=== PATIENT | female | born 1950 | race Hispanic/Latino ===

== ENCOUNTER 2021-02-27 13:10 | Inpatient (IN) | payer OTHER, MEDICARE ==
[~2021-02-27] VITALS: Ht 154.9 cm; Wt 87.1 kg
[2021-02-27] VITALS (7 sets, daily range): BP systolic 129–141; BP diastolic 69–99
[2021-02-27 14:12] LABS: BASOPHILS % (AUTO) 0.2 % (0.0-5.0); HEMATOCRIT 33.2 % (36-48); LYMPHOCYTES % (AUTO) 7.7 % (21.0-51.0); MONOCYTES % (AUTO) 5.8 % (3.0-13.0); NEUTROPHILS % (AUTO) 85.7 % (40.0-77.0); PLATELET COUNT (AUTO) 276 K/uL (130-400); RED BLOOD CELL COUNT(AUTO) 3.32 MIL/uL (4.00-5.50); RED CELL DISTRIBUTION WIDTH 15.8 % (11.0-15.5); WHITE BLOOD COUNT (AUTO) 14.4 K/uL (4.8-10.8)
[2021-02-27 14:15] LABS: CREATININE 1.8 mg/dL (0.5-1.5); POTASSIUM 4.3 mmol/L (3.5-5.1)
[2021-02-27 14:16] LABS: ABG BASE EXCESS -0.3 mmol/L (-2.0-3.0); ABG HCO3 22.7 mmol/L (21.0-28.0); ABG OXYGEN SATURATION 87.1 % (95.0-99.0); ABG PCO2 31 mmHg (32-45)
[2021-02-27 14:25] LABS: ALBUMIN 2.4 g/dL (3.5-5.0); BILIRUBIN,TOTAL 3.5 mg/dL (0.2-1.0); TOTAL PROTEIN, SERUM 7.5 g/dL (6.0-8.3)
[2021-02-27] MEDS ORDERED: BIVALIRUDIN 250 MG/VIAL IV ONE (14:45)
[2021-02-27] MEDS ORDERED: HEPARIN 10,000 UNIT/10ML (1,000 UNIT/ML) VIAL ONE (14:45)
[2021-02-27] MEDS ORDERED: IOHEXOL 350 MG/ML 100ML INFUS..BTL IV ONE (14:46)
[2021-02-27] MEDS ORDERED: IOHEXOL-350 50ML VIAL IV ONE (14:46)
[2021-02-27] MEDS ORDERED: NITROGLYCERIN 50MG VIAL IV ONE (14:46)
[2021-02-27] MEDS ORDERED: LIDOCAINE HCL 400MG/20ML VIAL ONE (14:46)
[2021-02-27] MEDS ORDERED: ASPIRIN 325MG EC TAB PO ONE (15:09)
[2021-02-27] MEDS ORDERED: MORPHINE 4 MG SYG ONE (15:15)
[2021-02-27] MEDS ORDERED: LABETALOL 20MG VIAL IV ONE (15:20)
[2021-02-27] MEDS ORDERED: MORPHINE 2 MG SYG ONE (15:26)
[2021-02-27] MEDS ORDERED: HYDRALAZINE 20MG/ML VIAL ONE (15:32)
[2021-02-27 18:11] LABS: CRP QUANTITATIVE 375.5 mg/L (0.00-9.0)
[2021-02-27] MEDS ORDERED: BARICITINIB MISC SCH (18:30)
[2021-02-27] MEDS ORDERED: [UNRECOGNIZED DRUG - OTHER] MISC SCH (18:30)
[2021-02-27] MEDS ORDERED: CLON0.1T PO (19:00)
[2021-02-27] MEDS: 0.9%NACL 1000ML 1,000 ML IV SCH (19:00)
[2021-02-27] MEDS ORDERED: FURO40TA5 PO (19:00)
[2021-02-27] MEDS ORDERED: METO-391 PO (19:00)
[2021-02-27] MEDS ORDERED: ATOR10 PO (19:00)
[2021-02-27] MEDS ORDERED: HYDR-4154 PO (19:00)
[2021-02-27] MEDS ORDERED: APIX5TAB PO (19:00)
[2021-02-27] MEDS ORDERED: INSU100I13 SQ ×2 (19:00)
[2021-02-27] MEDS ORDERED: ALLO100T PO (19:00)
[2021-02-27] MEDS ORDERED: PRED20TA3 PO (19:00)
[2021-02-27] MEDS: CEFEPIME HCL 2 GM VIAL IVP SCH (19:04)
[2021-02-27] MEDS: IPRATROPIUM 0.5 MG/2.5 ML INH IH SCH ×2 (20:07→23:13)
[2021-02-27] MEDS: DOXYCYCLINE HYCLATE 100 MG TABLET PO SCH (20:10)
[2021-02-27] MEDS: ATORVASTATIN 20 MG TABLET PO SCH (20:10)
[2021-02-27] MEDS: HYDRALAZINE 25MG TABLET PO SCH (20:10)
[2021-02-27] MEDS ORDERED: INSULIN HUMULIN R 100 UNIT/ML 3ML SQ SCH (22:00)
[2021-02-27] MEDS: SOLU-MEDROL 40MG VIAL IVP SCH (23:01)
[2021-02-27] MEDS ORDERED: INSULIN GLARGINE 100 UNITS/ML 10 ML VIAL SQ ONE (23:45)
[2021-02-28] VITALS: BP 133/67
[2021-02-28] MEDS: 0.9%NACL 1000ML 1,000 ML IV SCH (02:16)
[2021-02-28 04:00] VITALS: BP 149/75
[2021-02-28] MEDS ORDERED: LINEZOLID 600 MG/ISO-OSM 300 ML IV ONE (05:30)
[2021-02-28] MEDS: IPRATROPIUM 0.5 MG/2.5 ML INH IH SCH ×2 (05:47→07:42)
[2021-02-28 06:21] LABS: BASOPHILS % (AUTO) 0.2 % (0.0-5.0); EOSINOPHILS % (AUTO) 0.7 % (0.0-8.0); HEMATOCRIT 31.7 % (36-48); MEAN CORPUSCULAR HGB CONC 30.9 g/dL (32.0-36.0); MEAN CORPUSCULAR VOLUME 100.3 fL (79-99); MONOCYTES % (AUTO) 2.2 % (3.0-13.0); NEUTROPHILS % (AUTO) 92.9 % (40.0-77.0); PLATELET COUNT (AUTO) 272 K/uL (130-400); RED BLOOD CELL COUNT(AUTO) 3.16 MIL/uL (4.00-5.50); RED CELL DISTRIBUTION WIDTH 15.9 % (11.0-15.5); WHITE BLOOD COUNT (AUTO) 18.9 K/uL (4.8-10.8)
[2021-02-28] MEDS: INSULIN HUMULIN R 100 UNIT/ML 3ML SQ SCH ×4 (06:24→20:57)
[2021-02-28 06:41] LABS: ALBUMIN 2.1 g/dL (3.5-5.0); BILIRUBIN,TOTAL 2.7 mg/dL (0.2-1.0); CREATININE 1.3 mg/dL (0.5-1.5); MAGNESIUM 1.9 mg/dL (1.80-2.40); POTASSIUM 4.4 mmol/L (3.5-5.1); TOTAL PROTEIN, SERUM 6.7 g/dL (6.0-8.3)
[2021-02-28 06:48] LABS: CRP QUANTITATIVE 319.7 mg/L (0.00-9.0)
[2021-02-28 06:54] LABS: HEMOGLOBIN A1C 8.5 % (4.0-6.0)
[2021-02-28 07:32] VITALS: BP 147/85
[2021-02-28] MEDS ORDERED: PANTOPRAZOLE 40 MG TAB DR PO SCH (09:00)
[2021-02-28] MEDS ORDERED: FUROSEMIDE 40 MG TABLET PO SCH (09:00)
[2021-02-28] MEDS: METOPROLOL SUCCINATE 50 MG TAB.SR.24H PO SCH (09:38)
[2021-02-28] MEDS: APIXABAN 5 MG TABLET PO SCH ×2 (09:39→20:30)
[2021-02-28] MEDS: SOLU-MEDROL 40MG VIAL IVP SCH ×2 (09:39→20:30)
[2021-02-28] MEDS: ALLOPURINOL 100 MG TABLET PO SCH (09:39)
[2021-02-28] MEDS: HYDRALAZINE 25MG TABLET PO SCH ×3 (09:39→20:30)
[2021-02-28] MEDS: PANTOPRAZOLE 40 MG TAB DR PO SCH (09:39)
[2021-02-28] MEDS: DOXYCYCLINE HYCLATE 100 MG TABLET PO SCH ×2 (09:40→20:30)
[2021-02-28] MEDS: BARICITINIB (EUA) 2 MG TABLET PO SCH (09:40)
[2021-02-28] MEDS: FUROSEMIDE 40 MG TABLET PO SCH (09:40)
[2021-02-28 11:31] VITALS: BP 123/61
[2021-02-28] MEDS ORDERED: PHARMACY COMMUNICATION**REMDESIVIR MISC SCH (12:30)
[2021-02-28] MEDS: BUSPIRONE HCL 5 MG TABLET PO SCH ×2 (14:15→20:30)
[2021-02-28 15:14] VITALS: BP 111/63
[2021-02-28] MEDS: CEFEPIME HCL 2 GM VIAL IVP SCH (17:18)
[2021-02-28] MEDS: LINEZOLID 600 MG/ISO-OSM 300 ML IV SCH (17:18)
[2021-02-28 19:52] VITALS: BP 122/67
[2021-02-28] MEDS: ATORVASTATIN 20 MG TABLET PO SCH (20:30)
[2021-02-28] MEDS: INSULIN GLARGINE 100 UNITS/ML 10 ML VIAL SQ SCH (20:58)
[2021-02-28] MEDS ORDERED: SOLU-MEDROL 40MG VIAL IVP SCH (22:30)
[2021-03-01] VITALS (7 sets, daily range): BP systolic 109–127; BP diastolic 53–73
[2021-03-01] MEDS: LINEZOLID 600 MG/ISO-OSM 300 ML IV SCH ×2 (05:07→17:34)
[2021-03-01] MEDS: BUSPIRONE HCL 5 MG TABLET PO SCH ×3 (05:07→20:51)
[2021-03-01 05:18] LABS: BASOPHILS % (AUTO) 0.1 % (0.0-5.0); HEMATOCRIT 29.8 % (36-48); LYMPHOCYTES % (AUTO) 2.5 % (21.0-51.0); MEAN CORPUSCULAR HGB CONC 31.9 g/dL (32.0-36.0); MEAN CORPUSCULAR VOLUME 100.3 fL (79-99); NEUTROPHILS % (AUTO) 94.1 % (40.0-77.0); NUCLEATED RED BLOOD CELLS 0.4 % (0.0-0.19); PLATELET COUNT (AUTO) 270 K/uL (130-400); RED BLOOD CELL COUNT(AUTO) 2.97 MIL/uL (4.00-5.50); RED CELL DISTRIBUTION WIDTH 15.9 % (11.0-15.5); WHITE BLOOD COUNT (AUTO) 18.2 K/uL (4.8-10.8)
[2021-03-01 05:37] LABS: BILIRUBIN,TOTAL 1.4 mg/dL (0.2-1.0); CREATININE 1.2 mg/dL (0.5-1.5); MAGNESIUM 2.1 mg/dL (1.80-2.40); TOTAL PROTEIN, SERUM 6.5 g/dL (6.0-8.3)
[2021-03-01] MEDS: IPRATROPIUM 0.5 MG/2.5 ML INH IH SCH ×3 (06:00→17:19)
[2021-03-01] MEDS: INSULIN HUMULIN R 100 UNIT/ML 3ML SQ SCH ×4 (06:29→21:08)
[2021-03-01] MEDS ORDERED: REMDESIVIR (EUA) 520 200 MG in 0.9% NACL 250ML 250 ML IV SCH (07:00)
[2021-03-01] MEDS ORDERED: COMPOUND IV REFRIGERATED 1 EACH IVSOLN MISC PRN (07:00)
[2021-03-01] MEDS: BARICITINIB (EUA) 2 MG TABLET PO SCH (08:54)
[2021-03-01] MEDS: PANTOPRAZOLE 40 MG TAB DR PO SCH (08:55)
[2021-03-01] MEDS: FUROSEMIDE 40 MG TABLET PO SCH (08:55)
[2021-03-01] MEDS: DOXYCYCLINE HYCLATE 100 MG TABLET PO SCH ×2 (08:55→20:52)
[2021-03-01] MEDS: HYDRALAZINE 25MG TABLET PO SCH ×3 (08:55→20:52)
[2021-03-01] MEDS: SOLU-MEDROL 40MG VIAL IVP SCH ×2 (08:55→20:52)
[2021-03-01] MEDS: METOPROLOL SUCCINATE 50 MG TAB.SR.24H PO SCH (08:56)
[2021-03-01] MEDS: APIXABAN 5 MG TABLET PO SCH (08:56)
[2021-03-01] MEDS: ALLOPURINOL 100 MG TABLET PO SCH (08:56)
[2021-03-01] MEDS: CEFEPIME HCL 2 GM VIAL IVP SCH (17:34)
[2021-03-01] MEDS: ATORVASTATIN 20 MG TABLET PO SCH (20:52)
[2021-03-01] MEDS: ENOXAPARIN SODIUM 80 MG/0.8 ML SQ SCH (20:53)
[2021-03-01] MEDS: INSULIN GLARGINE 100 UNITS/ML 10 ML VIAL SQ SCH (21:09)
[2021-03-02 03:41] LABS: APPEARANCE,URINE Cloudy (CLEAR); BILIRUBIN,URINE Negative (NEGATIVE); COLOR,URINE Yellow (YELLOW); GLUCOSE, URINE (UA) Negative (NEGATIVE); KETONES,URINE Negative (NEGATIVE); LEUKOCYTE ESTERASE ,URINE Large (NEGATIVE); NITRATE,URINE Negative (NEGATIVE); OCCULT BLOOD,URINE Negative (NEGATIVE); PH,URINE 5.5 (5.0-8.0); PROTEIN,URINE POS 2+ mg/dL (NEGATIVE)
[2021-03-02 03:51] LABS: BACTERIA,URINE Few /HPF (None Seen); HYALINE CASTS, URINE 0-1 /LPF (0-1 /LPF); RBC,URINE 0-1 /HPF (0-1); SQUAMOUS EPITHELIAL CELL,UR 0-2 /HPF (0-2); WBC,URINE 26-50 /HPF (0-1)
[2021-03-02 04:00] VITALS: BP 124/74
[2021-03-02] MEDS: LINEZOLID 600 MG/ISO-OSM 300 ML IV SCH ×2 (05:04→18:10)
[2021-03-02] MEDS: BUSPIRONE HCL 5 MG TABLET PO SCH ×2 (05:04→12:42)
[2021-03-02 05:08] LABS: BASOPHILS % (AUTO) 0.1 % (0.0-5.0); HEMATOCRIT 30.1 % (36-48); LYMPHOCYTES % (AUTO) 2.6 % (21.0-51.0); MEAN CORPUSCULAR HEMOGLOBIN 31.4 pg (27.0-33.0); MEAN CORPUSCULAR HGB CONC 31.9 g/dL (32.0-36.0); MEAN CORPUSCULAR VOLUME 98.4 fL (79-99); NEUTROPHILS % (AUTO) 94.6 % (40.0-77.0); NUCLEATED RED BLOOD CELLS 0.5 % (0.0-0.19); PLATELET COUNT (AUTO) 302 K/uL (130-400); RED BLOOD CELL COUNT(AUTO) 3.06 MIL/uL (4.00-5.50); RED CELL DISTRIBUTION WIDTH 15.9 % (11.0-15.5); WHITE BLOOD COUNT (AUTO) 18.6 K/uL (4.8-10.8)
[2021-03-02 05:56] LABS: CREATININE 1.1 mg/dL (0.5-1.5); POTASSIUM 4.2 mmol/L (3.5-5.1)
[2021-03-02 06:00] LABS: ALBUMIN 2.1 g/dL (3.5-5.0); BILIRUBIN,TOTAL 1.1 mg/dL (0.2-1.0); TOTAL PROTEIN, SERUM 6.5 g/dL (6.0-8.3)
[2021-03-02] MEDS: REMDESIVIR LABS MISC SCH (06:00)
[2021-03-02 06:07] LABS: B-TYPE NATRIURETIC PEPTIDE 757 pg/mL (0-100)
[2021-03-02] MEDS: INSULIN HUMULIN R 100 UNIT/ML 3ML SQ SCH ×4 (06:16→20:15)
[2021-03-02 07:00] VITALS: BP 121/71
[2021-03-02] MEDS: PANTOPRAZOLE 40 MG TAB DR PO SCH (09:01)
[2021-03-02] MEDS: ALLOPURINOL 100 MG TABLET PO SCH (09:02)
[2021-03-02] MEDS: HYDRALAZINE 25MG TABLET PO SCH ×3 (09:02→20:12)
[2021-03-02] MEDS: FUROSEMIDE 40 MG TABLET PO SCH (09:03)
[2021-03-02] MEDS: BARICITINIB (EUA) 2 MG TABLET PO SCH (09:04)
[2021-03-02] MEDS: DOXYCYCLINE HYCLATE 100 MG TABLET PO SCH ×2 (09:04→20:12)
[2021-03-02] MEDS: SOLU-MEDROL 40MG VIAL IVP SCH ×2 (09:04→20:11)
[2021-03-02] MEDS: METOPROLOL SUCCINATE 50 MG TAB.SR.24H PO SCH (09:05)
[2021-03-02] MEDS: ENOXAPARIN SODIUM 80 MG/0.8 ML SQ SCH ×2 (09:06→20:12)
[2021-03-02 11:00] VITALS: BP 116/61
[2021-03-02] MEDS: REMDESIVIR (EUA) 520 100 MG in 0.9% NACL 250ML 250 ML IV SCH (12:50)
[2021-03-02 16:00] VITALS: BP 117/63
[2021-03-02] MEDS: CEFEPIME HCL 2 GM VIAL IVP SCH (18:11)
[2021-03-02 19:52] VITALS: BP 120/50
[2021-03-02] MEDS: IPRATROPIUM 0.5 MG/2.5 ML INH IH SCH (20:10)
[2021-03-02] MEDS: ATORVASTATIN 20 MG TABLET PO SCH (20:12)
[2021-03-02] MEDS: INSULIN GLARGINE 100 UNITS/ML 10 ML VIAL SQ SCH (20:23)
[2021-03-02 23:21] VITALS: BP 111/62
[2021-03-03] MEDS: IPRATROPIUM 0.5 MG/2.5 ML INH IH SCH ×4 (00:49→17:28)
[2021-03-03 04:05] VITALS: BP 126/72
[2021-03-03 04:41] LABS: BASOPHILS % (AUTO) 0.2 % (0.0-5.0); HEMATOCRIT 31.1 % (36-48); LYMPHOCYTES % (AUTO) 2.5 % (21.0-51.0); MEAN CORPUSCULAR HEMOGLOBIN 31.3 pg (27.0-33.0); MEAN CORPUSCULAR HGB CONC 31.5 g/dL (32.0-36.0); MEAN CORPUSCULAR VOLUME 99.4 fL (79-99); MONOCYTES % (AUTO) 2.5 % (3.0-13.0); NEUTROPHILS % (AUTO) 93.6 % (40.0-77.0); NUCLEATED RED BLOOD CELLS 0.7 % (0.0-0.19); PLATELET COUNT (AUTO) 319 K/uL (130-400); RED BLOOD CELL COUNT(AUTO) 3.13 MIL/uL (4.00-5.50); RED CELL DISTRIBUTION WIDTH 15.9 % (11.0-15.5); WHITE BLOOD COUNT (AUTO) 18.4 K/uL (4.8-10.8)
[2021-03-03 04:56] LABS: BILIRUBIN,TOTAL 0.9 mg/dL (0.2-1.0); CREATININE 1.1 mg/dL (0.5-1.5); CRP QUANTITATIVE 81.8 mg/L (0.00-9.0); POTASSIUM 4.4 mmol/L (3.5-5.1); TOTAL PROTEIN, SERUM 6.4 g/dL (6.0-8.3)
[2021-03-03] MEDS: REMDESIVIR LABS MISC SCH (05:49)
[2021-03-03] MEDS: LINEZOLID 600 MG/ISO-OSM 300 ML IV SCH ×2 (06:16→17:28)
[2021-03-03] MEDS: INSULIN HUMULIN R 100 UNIT/ML 3ML SQ SCH ×4 (06:20→20:30)
[2021-03-03 07:00] VITALS: BP 128/66
[2021-03-03] MEDS: BARICITINIB (EUA) 2 MG TABLET PO SCH (09:40)
[2021-03-03] MEDS: FUROSEMIDE 40 MG TABLET PO SCH (09:40)
[2021-03-03] MEDS: HYDRALAZINE 25MG TABLET PO SCH ×3 (09:40→20:28)
[2021-03-03] MEDS: METOPROLOL SUCCINATE 50 MG TAB.SR.24H PO SCH (09:40)
[2021-03-03] MEDS: ALLOPURINOL 100 MG TABLET PO SCH (09:41)
[2021-03-03] MEDS: PANTOPRAZOLE 40 MG TAB DR PO SCH (09:41)
[2021-03-03] MEDS: DOXYCYCLINE HYCLATE 100 MG TABLET PO SCH ×2 (09:41→20:28)
[2021-03-03] MEDS: SOLU-MEDROL 40MG VIAL IVP SCH ×2 (09:41→20:28)
[2021-03-03] MEDS: ENOXAPARIN SODIUM 80 MG/0.8 ML SQ SCH ×2 (09:41→20:29)
[2021-03-03 11:00] VITALS: BP 137/69
[2021-03-03] MEDS: REMDESIVIR (EUA) 520 100 MG in 0.9% NACL 250ML 250 ML IV SCH (12:12)
[2021-03-03 16:00] VITALS: BP 123/59
[2021-03-03] MEDS: CEFEPIME HCL 2 GM VIAL IVP SCH (17:28)
[2021-03-03 19:44] VITALS: BP 154/78
[2021-03-03] MEDS: ATORVASTATIN 20 MG TABLET PO SCH (20:28)
[2021-03-03] MEDS: INSULIN GLARGINE 100 UNITS/ML 10 ML VIAL SQ SCH (20:31)
[2021-03-03 23:11] VITALS: BP 130/73
[2021-03-04 03:19] VITALS: BP 145/80
[2021-03-04 04:33] LABS: BASOPHILS % (AUTO) 0.1 % (0.0-5.0); HEMATOCRIT 32.8 % (36-48); LYMPHOCYTES % (AUTO) 1.9 % (21.0-51.0); MEAN CORPUSCULAR HGB CONC 31.1 g/dL (32.0-36.0); MEAN CORPUSCULAR VOLUME 99.7 fL (79-99); MONOCYTES % (AUTO) 2.8 % (3.0-13.0); NEUTROPHILS % (AUTO) 94.5 % (40.0-77.0); NUCLEATED RED BLOOD CELLS 0.4 % (0.0-0.19); PLATELET COUNT (AUTO) 331 K/uL (130-400); RED BLOOD CELL COUNT(AUTO) 3.29 MIL/uL (4.00-5.50); WHITE BLOOD COUNT (AUTO) 18.5 K/uL (4.8-10.8)
[2021-03-04 05:05] LABS: ALBUMIN 2.3 g/dL (3.5-5.0); CREATININE 1.2 mg/dL (0.5-1.5); CRP QUANTITATIVE 65.5 mg/L (0.00-9.0); POTASSIUM 4.6 mmol/L (3.5-5.1); TOTAL PROTEIN, SERUM 6.8 g/dL (6.0-8.3)
[2021-03-04] MEDS: LINEZOLID 600 MG/ISO-OSM 300 ML IV SCH ×2 (05:14→19:26)
[2021-03-04] MEDS: IPRATROPIUM 0.5 MG/2.5 ML INH IH SCH ×3 (05:15→18:00)
[2021-03-04] MEDS: REMDESIVIR LABS MISC SCH (05:23)
[2021-03-04] MEDS: INSULIN HUMULIN R 100 UNIT/ML 3ML SQ SCH ×4 (06:24→20:40)
[2021-03-04 08:10] VITALS: BP 148/84
[2021-03-04] MEDS: METOPROLOL SUCCINATE 50 MG TAB.SR.24H PO SCH (08:32)
[2021-03-04] MEDS: ENOXAPARIN SODIUM 80 MG/0.8 ML SQ SCH ×2 (08:33→20:39)
[2021-03-04] MEDS: BARICITINIB (EUA) 2 MG TABLET PO SCH (08:33)
[2021-03-04] MEDS: PANTOPRAZOLE 40 MG TAB DR PO SCH (08:35)
[2021-03-04] MEDS: ALLOPURINOL 100 MG TABLET PO SCH (08:35)
[2021-03-04] MEDS: DOXYCYCLINE HYCLATE 100 MG TABLET PO SCH ×2 (08:35→20:38)
[2021-03-04] MEDS: FUROSEMIDE 40 MG TABLET PO SCH (08:36)
[2021-03-04] MEDS: SOLU-MEDROL 40MG VIAL IVP SCH ×2 (08:37→20:38)
[2021-03-04] MEDS: HYDRALAZINE 25MG TABLET PO SCH ×3 (08:42→20:38)
[2021-03-04 12:00] VITALS: BP 133/72
[2021-03-04] MEDS: REMDESIVIR (EUA) 520 100 MG in 0.9% NACL 250ML 250 ML IV SCH (13:15)
[2021-03-04 16:00] VITALS: BP 124/67
[2021-03-04] MEDS: CEFEPIME HCL 2 GM VIAL IVP SCH (19:26)
[2021-03-04] MEDS: ATORVASTATIN 20 MG TABLET PO SCH (20:38)
[2021-03-04 21:06] VITALS: BP 146/87
[2021-03-04] MEDS: INSULIN GLARGINE 100 UNITS/ML 10 ML VIAL SQ SCH (21:14)
[2021-03-05 00:07] VITALS: BP 120/58
[2021-03-05 04:12] VITALS: BP 136/75
[2021-03-05 05:21] LABS: BASOPHILS % (AUTO) 0.1 % (0.0-5.0); HEMATOCRIT 34.5 % (36-48); LYMPHOCYTES % (AUTO) 1.7 % (21.0-51.0); MEAN CORPUSCULAR HEMOGLOBIN 30.7 pg (27.0-33.0); MEAN CORPUSCULAR HGB CONC 30.1 g/dL (32.0-36.0); MEAN CORPUSCULAR VOLUME 101.8 fL (79-99); MONOCYTES % (AUTO) 2.1 % (3.0-13.0); NEUTROPHILS % (AUTO) 95.3 % (40.0-77.0); NUCLEATED RED BLOOD CELLS 0.1 % (0.0-0.19); PLATELET COUNT (AUTO) 310 K/uL (130-400); RED BLOOD CELL COUNT(AUTO) 3.39 MIL/uL (4.00-5.50); RED CELL DISTRIBUTION WIDTH 15.9 % (11.0-15.5); WHITE BLOOD COUNT (AUTO) 16.9 K/uL (4.8-10.8)
[2021-03-05 05:39] LABS: ALBUMIN 2.4 g/dL (3.5-5.0); BILIRUBIN,TOTAL 1.1 mg/dL (0.2-1.0); CREATININE 1.2 mg/dL (0.5-1.5); CRP QUANTITATIVE 68.2 mg/L (0.00-9.0); POTASSIUM 5.2 mmol/L (3.5-5.1); TOTAL PROTEIN, SERUM 6.9 g/dL (6.0-8.3)
[2021-03-05] MEDS: IPRATROPIUM 0.5 MG/2.5 ML INH IH SCH ×3 (06:00→12:00)
[2021-03-05] MEDS: REMDESIVIR LABS MISC SCH (06:00)
[2021-03-05] MEDS: INSULIN HUMULIN R 100 UNIT/ML 3ML SQ SCH ×4 (06:26→20:49)
[2021-03-05] MEDS: LINEZOLID 600 MG/ISO-OSM 300 ML IV SCH ×2 (06:29→16:38)
[2021-03-05 08:00] VITALS: BP 137/71
[2021-03-05] MEDS: PANTOPRAZOLE 40 MG TAB DR PO SCH (10:08)
[2021-03-05] MEDS: HYDRALAZINE 25MG TABLET PO SCH ×3 (10:08→20:48)
[2021-03-05] MEDS: FUROSEMIDE 40 MG TABLET PO SCH (10:09)
[2021-03-05] MEDS: ALLOPURINOL 100 MG TABLET PO SCH (10:11)
[2021-03-05] MEDS: METOPROLOL SUCCINATE 50 MG TAB.SR.24H PO SCH (10:11)
[2021-03-05] MEDS: SOLU-MEDROL 40MG VIAL IVP SCH ×2 (10:12→20:48)
[2021-03-05] MEDS: DOXYCYCLINE HYCLATE 100 MG TABLET PO SCH (10:12)
[2021-03-05] MEDS: BARICITINIB (EUA) 2 MG TABLET PO SCH (10:12)
[2021-03-05] MEDS: ENOXAPARIN SODIUM 80 MG/0.8 ML SQ SCH ×2 (10:13→20:49)
[2021-03-05 12:00] VITALS: BP 136/78
[2021-03-05] MEDS: REMDESIVIR (EUA) 520 100 MG in 0.9% NACL 250ML 250 ML IV SCH (13:57)
[2021-03-05 16:00] VITALS: BP 118/65
[2021-03-05 19:00] VITALS: BP 117/89
[2021-03-05] MEDS: CEFEPIME HCL 2 GM VIAL IVP SCH (19:28)
[2021-03-05] MEDS: ATORVASTATIN 20 MG TABLET PO SCH (20:48)
[2021-03-05] MEDS: INSULIN GLARGINE 100 UNITS/ML 10 ML VIAL SQ SCH (20:50)
[2021-03-06] VITALS (7 sets, daily range): BP systolic 120–147; BP diastolic 54–85
[2021-03-06 04:53] LABS: BASOPHILS % (AUTO) 0.1 % (0.0-5.0); HEMATOCRIT 33.9 % (36-48); MEAN CORPUSCULAR HEMOGLOBIN 31.3 pg (27.0-33.0); MEAN CORPUSCULAR HGB CONC 31.6 g/dL (32.0-36.0); MEAN CORPUSCULAR VOLUME 99.1 fL (79-99); MONOCYTES % (AUTO) 1.9 % (3.0-13.0); NUCLEATED RED BLOOD CELLS 0.3 % (0.0-0.19); PLATELET COUNT (AUTO) 309 K/uL (130-400); RED BLOOD CELL COUNT(AUTO) 3.42 MIL/uL (4.00-5.50); RED CELL DISTRIBUTION WIDTH 15.9 % (11.0-15.5); WHITE BLOOD COUNT (AUTO) 16.3 K/uL (4.8-10.8)
[2021-03-06 05:12] LABS: ALBUMIN 2.4 g/dL (3.5-5.0); CREATININE 1.2 mg/dL (0.5-1.5); CRP QUANTITATIVE 53.8 mg/L (0.00-9.0); POTASSIUM 4.6 mmol/L (3.5-5.1); TOTAL PROTEIN, SERUM 6.9 g/dL (6.0-8.3)
[2021-03-06] MEDS: LINEZOLID 600 MG/ISO-OSM 300 ML IV SCH ×2 (06:04→19:33)
[2021-03-06] MEDS: INSULIN HUMULIN R 100 UNIT/ML 3ML SQ SCH ×2 (06:14→20:04)
[2021-03-06] MEDS: ALLOPURINOL 100 MG TABLET PO SCH (09:00)
[2021-03-06] MEDS: PANTOPRAZOLE 40 MG TAB DR PO SCH (09:00)
[2021-03-06] MEDS: FUROSEMIDE 40 MG TABLET PO SCH (09:00)
[2021-03-06] MEDS: HYDRALAZINE 25MG TABLET PO SCH ×2 (09:00→20:03)
[2021-03-06] MEDS: SOLU-MEDROL 40MG VIAL IVP SCH ×2 (09:00→20:04)
[2021-03-06] MEDS ORDERED: METOLAZONE 2.5 MG TABLET PO SCH (09:30)
[2021-03-06] MEDS ORDERED: MORPHINE 2 MG SYG IVP SCH (10:00)
[2021-03-06] MEDS: CEFEPIME HCL 2 GM VIAL IVP SCH (19:32)
[2021-03-06] MEDS ORDERED: METOLAZONE 2.5 MG TABLET ONE (20:02)
[2021-03-06] MEDS: ATORVASTATIN 20 MG TABLET PO SCH (20:03)
[2021-03-06] MEDS: ENOXAPARIN SODIUM 80 MG/0.8 ML SQ SCH (20:05)
[2021-03-06] MEDS: INSULIN GLARGINE 100 UNITS/ML 10 ML VIAL SQ SCH (20:06)
[2021-03-06 22:28] LABS: PROTEIN,URINE RANDOM 107.2 mg/dL (0-11.9)
[2021-03-07 03:58] VITALS: BP 107/61
[2021-03-07 04:25] LABS: BASOPHILS % (AUTO) 0.2 % (0.0-5.0); EOSINOPHILS % (AUTO) 0.1 % (0.0-8.0); HEMATOCRIT 36.8 % (36-48); LYMPHOCYTES % (AUTO) 1.8 % (21.0-51.0); MEAN CORPUSCULAR HGB CONC 30.7 g/dL (32.0-36.0); MEAN CORPUSCULAR VOLUME 100.8 fL (79-99); MONOCYTES % (AUTO) 0.7 % (3.0-13.0); NEUTROPHILS % (AUTO) 96.5 % (40.0-77.0); NUCLEATED RED BLOOD CELLS 0.5 % (0.0-0.19); PLATELET COUNT (AUTO) 258 K/uL (130-400); RED BLOOD CELL COUNT(AUTO) 3.65 MIL/uL (4.00-5.50); RED CELL DISTRIBUTION WIDTH 15.7 % (11.0-15.5); WHITE BLOOD COUNT (AUTO) 17.6 K/uL (4.8-10.8)
[2021-03-07 04:42] LABS: ALBUMIN 2.4 g/dL (3.5-5.0); CREATININE 1.2 mg/dL (0.5-1.5); POTASSIUM 4.9 mmol/L (3.5-5.1); TOTAL PROTEIN, SERUM 6.7 g/dL (6.0-8.3)
[2021-03-07 05:00] LABS: % IRON SATURATION 49.5 % (22-44)
[2021-03-07] MEDS: IPRATROPIUM 0.5 MG/2.5 ML INH IH SCH ×4 (06:00→19:10)
[2021-03-07] MEDS: INSULIN HUMULIN R 100 UNIT/ML 3ML SQ SCH ×4 (06:36→20:17)
[2021-03-07] MEDS: LINEZOLID 600 MG/ISO-OSM 300 ML IV SCH ×2 (06:37→17:34)
[2021-03-07] MEDS: SOLU-MEDROL 40MG VIAL IVP SCH ×2 (07:48→19:55)
[2021-03-07] MEDS: PANTOPRAZOLE 40 MG TAB DR PO SCH (07:48)
[2021-03-07] MEDS: FUROSEMIDE 40 MG TABLET PO SCH (07:48)
[2021-03-07] MEDS: METOPROLOL SUCCINATE 50 MG TAB.SR.24H PO SCH ×2 (07:50→07:55)
[2021-03-07] MEDS: HYDRALAZINE 25MG TABLET PO SCH ×3 (07:51→19:56)
[2021-03-07] MEDS: ENOXAPARIN SODIUM 80 MG/0.8 ML SQ SCH ×2 (07:52→19:56)
[2021-03-07] MEDS: ALLOPURINOL 100 MG TABLET PO SCH (07:54)
[2021-03-07 08:00] VITALS: BP 138/78
[2021-03-07] MEDS ORDERED: PHARMACY COMMUNICATION MISC SCH (09:30)
[2021-03-07] MEDS ORDERED: LACTULOSE 20 GM/30 ML UDCUP PO PRN (10:00)
[2021-03-07 12:00] VITALS: BP 116/60
[2021-03-07 16:00] VITALS: BP 126/69
[2021-03-07] MEDS: CEFEPIME HCL 2 GM VIAL IVP SCH (18:12)
[2021-03-07 19:32] VITALS: BP 114/87
[2021-03-07] MEDS: ATORVASTATIN 20 MG TABLET PO SCH (19:55)
[2021-03-07] MEDS: INSULIN GLARGINE 100 UNITS/ML 10 ML VIAL SQ SCH (20:17)
[2021-03-08] VITALS (7 sets, daily range): BP systolic 102–130; BP diastolic 54–73
[2021-03-08 04:34] LABS: BASOPHILS % (AUTO) 0.1 % (0.0-5.0); HEMATOCRIT 31.2 % (36-48); LYMPHOCYTES % (AUTO) 1.5 % (21.0-51.0); MEAN CORPUSCULAR HEMOGLOBIN 30.8 pg (27.0-33.0); MEAN CORPUSCULAR HGB CONC 31.4 g/dL (32.0-36.0); MEAN CORPUSCULAR VOLUME 98.1 fL (79-99); MONOCYTES % (AUTO) 1.3 % (3.0-13.0); NEUTROPHILS % (AUTO) 96.5 % (40.0-77.0); NUCLEATED RED BLOOD CELLS 0.5 % (0.0-0.19); PLATELET COUNT (AUTO) 227 K/uL (130-400); RED BLOOD CELL COUNT(AUTO) 3.18 MIL/uL (4.00-5.50); RED CELL DISTRIBUTION WIDTH 15.4 % (11.0-15.5)
[2021-03-08 04:49] LABS: ALBUMIN 2.2 g/dL (3.5-5.0); BILIRUBIN,TOTAL 0.9 mg/dL (0.2-1.0); CREATININE 1.3 mg/dL (0.5-1.5); CRP QUANTITATIVE 42.2 mg/L (0.00-9.0); POTASSIUM 4.8 mmol/L (3.5-5.1); TOTAL PROTEIN, SERUM 6.1 g/dL (6.0-8.3)
[2021-03-08] MEDS: LINEZOLID 600 MG/ISO-OSM 300 ML IV SCH ×2 (06:00→18:00)
[2021-03-08] MEDS: IPRATROPIUM 0.5 MG/2.5 ML INH IH SCH ×4 (06:00→18:00)
[2021-03-08] MEDS: INSULIN HUMULIN R 100 UNIT/ML 3ML SQ SCH ×4 (06:18→21:00)
[2021-03-08] MEDS: ENOXAPARIN SODIUM 80 MG/0.8 ML SQ SCH ×2 (08:08→22:49)
[2021-03-08] MEDS: HYDRALAZINE 25MG TABLET PO SCH ×3 (08:09→22:50)
[2021-03-08] MEDS: ALLOPURINOL 100 MG TABLET PO SCH (08:09)
[2021-03-08] MEDS: METOPROLOL SUCCINATE 50 MG TAB.SR.24H PO SCH (08:09)
[2021-03-08] MEDS: FUROSEMIDE 40 MG TABLET PO SCH (08:10)
[2021-03-08] MEDS: PANTOPRAZOLE 40 MG TAB DR PO SCH (08:10)
[2021-03-08] MEDS: SOLU-MEDROL 40MG VIAL IVP SCH ×2 (08:12→22:49)
[2021-03-08 16:29] LABS: INR 1.1 (0.85-1.15); PROTHROMBIN TIME 11.9 SEC (9.6-11.6)
[2021-03-08] MEDS: CEFEPIME HCL 2 GM VIAL IVP SCH (18:00)
[2021-03-08] MEDS: ATORVASTATIN 20 MG TABLET PO SCH (22:49)
[2021-03-08] MEDS: INSULIN GLARGINE 100 UNITS/ML 10 ML VIAL SQ SCH (22:51)
[2021-03-09 03:39] VITALS: BP 114/62
[2021-03-09 05:43] LABS: BASOPHILS % (AUTO) 0.1 % (0.0-5.0); EOSINOPHILS % (AUTO) 0.1 % (0.0-8.0); HEMATOCRIT 28.9 % (36-48); LYMPHOCYTES % (AUTO) 0.7 % (21.0-51.0); MEAN CORPUSCULAR HGB CONC 31.1 g/dL (32.0-36.0); MEAN CORPUSCULAR VOLUME 99.7 fL (79-99); NEUTROPHILS % (AUTO) 97.2 % (40.0-77.0); NUCLEATED RED BLOOD CELLS 0.6 % (0.0-0.19); PLATELET COUNT (AUTO) 160 K/uL (130-400); RED CELL DISTRIBUTION WIDTH 15.1 % (11.0-15.5)
[2021-03-09 06:04] LABS: BILIRUBIN,TOTAL 0.7 mg/dL (0.2-1.0); CREATININE 1.3 mg/dL (0.5-1.5); CRP QUANTITATIVE 49.2 mg/L (0.00-9.0); POTASSIUM 4.7 mmol/L (3.5-5.1); TOTAL PROTEIN, SERUM 5.7 g/dL (6.0-8.3)
[2021-03-09] MEDS: LINEZOLID 600 MG/ISO-OSM 300 ML IV SCH (06:48)
[2021-03-09] MEDS: INSULIN HUMULIN R 100 UNIT/ML 3ML SQ SCH ×4 (07:30→20:36)
[2021-03-09 08:00] VITALS: BP 109/65
[2021-03-09] MEDS: ENOXAPARIN SODIUM 80 MG/0.8 ML SQ SCH (09:00)
[2021-03-09] MEDS: PANTOPRAZOLE 40 MG TAB DR PO SCH (09:37)
[2021-03-09] MEDS: FUROSEMIDE 40 MG TABLET PO SCH (09:38)
[2021-03-09] MEDS: HYDRALAZINE 25MG TABLET PO SCH ×4 (09:39→21:00)
[2021-03-09] MEDS: SOLU-MEDROL 40MG VIAL IVP SCH ×2 (09:39→20:36)
[2021-03-09] MEDS: METOPROLOL SUCCINATE 50 MG TAB.SR.24H PO SCH (09:39)
[2021-03-09] MEDS: ALLOPURINOL 100 MG TABLET PO SCH (09:39)
[2021-03-09 12:00] VITALS: BP 102/55
[2021-03-09 16:00] VITALS: BP 116/60
[2021-03-09] MEDS: CEFEPIME HCL 2 GM VIAL IVP SCH (17:32)
[2021-03-09] MEDS: ATORVASTATIN 20 MG TABLET PO SCH (20:36)
[2021-03-09] MEDS: INSULIN GLARGINE 100 UNITS/ML 10 ML VIAL SQ SCH (20:36)
[2021-03-09 20:58] VITALS: BP 95/56
[2021-03-09] MEDS: NOREPINEPHRINE BITARTRATE 32 MG in 0.9% NACL 250ML 250 ML IV SCH (21:45)
[2021-03-10] VITALS (30 sets, daily range): BP systolic 57–142; BP diastolic 33–78
[2021-03-10 04:59] LABS: BASOPHILS % (AUTO) 0.1 % (0.0-5.0); LYMPHOCYTES % (AUTO) 1.3 % (21.0-51.0); MEAN CORPUSCULAR HGB CONC 31.3 g/dL (32.0-36.0); MEAN CORPUSCULAR VOLUME 99.2 fL (79-99); MONOCYTES % (AUTO) 1.1 % (3.0-13.0); NUCLEATED RED BLOOD CELLS 0.3 % (0.0-0.19); PLATELET COUNT (AUTO) 120 K/uL (130-400); RED BLOOD CELL COUNT(AUTO) 2.42 MIL/uL (4.00-5.50); WHITE BLOOD COUNT (AUTO) 18.7 K/uL (4.8-10.8)
[2021-03-10 05:17] LABS: ALBUMIN 1.9 g/dL (3.5-5.0); BILIRUBIN,TOTAL 0.7 mg/dL (0.2-1.0); CREATININE 1.7 mg/dL (0.5-1.5); CRP QUANTITATIVE 49.9 mg/L (0.00-9.0); POTASSIUM 5.4 mmol/L (3.5-5.1); TOTAL PROTEIN, SERUM 5.2 g/dL (6.0-8.3)
[2021-03-10] MEDS: INSULIN HUMULIN R 100 UNIT/ML 3ML SQ SCH ×4 (05:17→21:00)
[2021-03-10] MEDS: HYDRALAZINE 25MG TABLET PO SCH ×3 (08:51→21:00)
[2021-03-10] MEDS: SOLU-MEDROL 40MG VIAL IVP SCH ×2 (08:51→21:44)
[2021-03-10] MEDS: METOPROLOL SUCCINATE 50 MG TAB.SR.24H PO SCH (08:52)
[2021-03-10] MEDS: PANTOPRAZOLE 40 MG TAB DR PO SCH (08:52)
[2021-03-10] MEDS: FUROSEMIDE 40 MG TABLET PO SCH (08:52)
[2021-03-10] MEDS: ALLOPURINOL 100 MG TABLET PO SCH (08:53)
[2021-03-10] MEDS ORDERED: MORPHINE 2 MG SYG IVP SCH (10:00)
[2021-03-10] MEDS ORDERED: LACTATED RINGERS 1000ML 500 ML IV ONE (11:00)
[2021-03-10] MEDS ORDERED: TRAMADOL HCL 50 MG TABLET PO PRN (11:00)
[2021-03-10] MEDS ORDERED: ONDANSETRON 4MG INJ IVP PRN (11:00)
[2021-03-10] MEDS ORDERED: MORPHINE 2 MG SYG IVP ONE (13:00)
[2021-03-10] MEDS ORDERED: MORPHINE 2 MG SYG IVP PRN (14:00)
[2021-03-10 14:46] LABS: ABG PCO2 40 mmHg (32-45)
[2021-03-10] MEDS: NOREPINEPHRIN 4MG/NS 250ML 250 ML IV SCH ×4 (14:56→19:53)
[2021-03-10] MEDS: LACTATED RINGERS 1000ML 500 ML IV SCH ×2 (15:42→20:00)
[2021-03-10] MEDS ORDERED: FENTANYL 2500MCG+NS 250ML 250 ML IV ONE (17:44)
[2021-03-10] MEDS ORDERED: PROPOFOL 1000 MG/100 ML 100 ML IV ONE (17:44)
[2021-03-10] MEDS ORDERED: VASOPRESSIN 20 UNITS in 0.9%NACL 100ML 100 ML IVP PRN (18:00)
[2021-03-10] MEDS: FENTANYL 2500MCG+NS 250ML 250 ML IVPB SCH (18:25)
[2021-03-10] MEDS: PROPOFOL 1000 MG/100 ML 100 ML IV SCH ×2 (18:26→22:22)
[2021-03-10] MEDS ORDERED: ZOSYN 3.375GM+NS 50ML 3.38 GM in 0.9%NACL 50ML 50 ML IV SCH (18:30)
[2021-03-10 19:19] LABS: ABG BASE EXCESS -14.5 mmol/L (-2.0-3.0); ABG HCO3 13.3 mmol/L (21.0-28.0); ABG PCO2 39 mmHg (32-45)
[2021-03-10] MEDS ORDERED: SODIUM BICARB 50MEQ 50ML VIAL IV STA (19:45)
[2021-03-10] MEDS ORDERED: SODIUM BICARB 50MEQ 50ML VIAL 50 ML ONE (19:50)
[2021-03-10 20:05] LABS: HEMATOCRIT 27.7 % (36-48); MEAN CORPUSCULAR HEMOGLOBIN 31.4 pg (27.0-33.0); MEAN CORPUSCULAR VOLUME 101.1 fL (79-99); NUCLEATED RED BLOOD CELLS 1.4 % (0.0-0.19); PLATELET COUNT (AUTO) 121 K/uL (130-400); RED BLOOD CELL COUNT(AUTO) 2.74 MIL/uL (4.00-5.50); RED CELL DISTRIBUTION WIDTH 14.8 % (11.0-15.5)
[2021-03-10 20:11] LABS: WHITE BLOOD COUNT (AUTO) 37.3 K/uL (4.8-10.8)
[2021-03-10 20:20] LABS: ALBUMIN 1.9 g/dL (3.5-5.0); BILIRUBIN,TOTAL 1.1 mg/dL (0.2-1.0); CREATININE 2.7 mg/dL (0.5-1.5); MAGNESIUM 2.3 mg/dL (1.80-2.40); POTASSIUM 5.2 mmol/L (3.5-5.1)
[2021-03-10] MEDS: INSULIN GLARGINE 100 UNITS/ML 10 ML VIAL SQ SCH (21:00)
[2021-03-10 21:01] LABS: BAND NEUTROPHILS % (MANUAL) 2 % (0-2); LYMPHOCYTES % (MANUAL) 3 % (22-44); MAN.DIFF COMMENT-IMPRESSION MANUAL DIFFERENTIAL; SEGMENTED NEUTROPHILS % 95 % (40-70)
[2021-03-10] MEDS ORDERED: LACTATED RINGERS 1000ML 2,400 ML IV ONE (21:30)
[2021-03-10] MEDS: LINEZOLID 600 MG/ISO-OSM 300 ML IV SCH (21:44)
[2021-03-10] MEDS: ATORVASTATIN 20 MG TABLET PO SCH (21:45)
[2021-03-10] MEDS: CEFEPIME HCL 2 GM VIAL IVP SCH (21:45)
[2021-03-10] MEDS: ZOSYN 3.375GM +NS 50ML IV SCH (21:45)
[2021-03-11] VITALS (56 sets, daily range): BP systolic 54–194; BP diastolic 29–98
[2021-03-11] MEDS: LACTATED RINGERS 1000ML 500 ML IV SCH ×2 (00:16→05:35)
[2021-03-11 04:29] LABS: BASOPHILS % (AUTO) 0.3 % (0.0-5.0); EOSINOPHILS % (AUTO) 0.1 % (0.0-8.0); HEMATOCRIT 24.4 % (36-48); LYMPHOCYTES % (AUTO) 0.4 % (21.0-51.0); MEAN CORPUSCULAR HEMOGLOBIN 31.5 pg (27.0-33.0); MEAN CORPUSCULAR HGB CONC 33.2 g/dL (32.0-36.0); MEAN CORPUSCULAR VOLUME 94.9 fL (79-99); MONOCYTES % (AUTO) 2.2 % (3.0-13.0); NEUTROPHILS % (AUTO) 95.2 % (40.0-77.0); NUCLEATED RED BLOOD CELLS 0.9 % (0.0-0.19); PLATELET COUNT (AUTO) 97 K/uL (130-400); RED BLOOD CELL COUNT(AUTO) 2.57 MIL/uL (4.00-5.50); RED CELL DISTRIBUTION WIDTH 15.2 % (11.0-15.5)
[2021-03-11 04:32] LABS: WHITE BLOOD COUNT (AUTO) 59.1 K/uL (4.8-10.8)
[2021-03-11 04:42] LABS: ALBUMIN 1.8 g/dL (3.5-5.0); BILIRUBIN,TOTAL 1.3 mg/dL (0.2-1.0); CREATININE 2.5 mg/dL (0.5-1.5); CRP QUANTITATIVE 34.2 mg/L (0.00-9.0); POTASSIUM 5.5 mmol/L (3.5-5.1); TOTAL PROTEIN, SERUM 4.6 g/dL (6.0-8.3)
[2021-03-11] MEDS: PROPOFOL 1000 MG/100 ML 100 ML IV SCH ×2 (05:14→09:58)
[2021-03-11 05:17] LABS: BAND NEUTROPHILS % (MANUAL) 9 % (0-2); LYMPHOCYTES % (MANUAL) 2 % (22-44); MAN.DIFF COMMENT-IMPRESSION MANUAL DIFFERENTIAL; MONOCYTES % (MANUAL) 2 % (2-9); SEGMENTED NEUTROPHILS % 87 % (40-70)
[2021-03-11 05:18] LABS: PLATELET MORPHOLOGY COMMENT SLIGHTLY DECREASED
[2021-03-11] MEDS: ZOSYN 3.375GM +NS 50ML IV SCH (05:35)
[2021-03-11] MEDS: INSULIN HUMULIN R 100 UNIT/ML 3ML SQ SCH ×3 (07:21→18:30)
[2021-03-11] MEDS: FUROSEMIDE 40 MG TABLET PO SCH (08:21)
[2021-03-11] MEDS: ALLOPURINOL 100 MG TABLET PO SCH (08:21)
[2021-03-11] MEDS: METOPROLOL SUCCINATE 50 MG TAB.SR.24H PO SCH (08:21)
[2021-03-11] MEDS ORDERED: CALCIUM GLUC 1GM/10ML VIAL IV SCH ×2 (08:30→20:00)
[2021-03-11] MEDS: SOLU-MEDROL 40MG VIAL IVP SCH ×2 (08:59→20:43)
[2021-03-11] MEDS: LINEZOLID 600 MG/ISO-OSM 300 ML IV SCH ×2 (08:59→20:41)
[2021-03-11] MEDS ORDERED: NA ZIRCON CYCLOSIL(LOKELMA 10GM) PO SCH (09:02)
[2021-03-11] MEDS ORDERED: CALCIUM GLUC 1GM 1 GM in 0.9%NACL 100ML 100 ML IV SCH ×2 (09:04→20:00)
[2021-03-11] MEDS: PANTOPRAZOLE 40 MG/VIAL IVP SCH (09:41)
[2021-03-11 09:53] LABS: ABG HCO3 19.1 mmol/L (21.0-28.0); ABG OXYGEN SATURATION 91.5 % (95.0-99.0); ABG PCO2 36 mmHg (32-45)
[2021-03-11] MEDS ORDERED: FUROSEMIDE 20MG VIAL IV SCH (12:00)
[2021-03-11] MEDS: NOREPINEPHRINE BITARTRATE 32 MG in 0.9% NACL 250ML 250 ML IV SCH (12:02)
[2021-03-11] MEDS ORDERED: MIDODRINE HCL 5 MG TABLET PO SCH (13:00)
[2021-03-11 14:05] LABS: INR 1.14 (0.85-1.15); PROTHROMBIN TIME 12.3 SEC (9.6-11.6)
[2021-03-11 14:06] LABS: PARTIAL THROMBOPLASTIN TIME 29.5 SEC (26.3-35.5)
[2021-03-11] MEDS ORDERED: PHARMACY COMMUNICATION MISC SCH ×2 (18:30→20:00)
[2021-03-11] MEDS: MEROPENEM 1 GM VIAL IVP SCH (18:31)
[2021-03-11 18:34] LABS: ABG BASE EXCESS -3.1 mmol/L (-2.0-3.0); ABG HCO3 20.8 mmol/L (21.0-28.0); ABG OXYGEN SATURATION 92.8 % (95.0-99.0); ABG PCO2 33 mmHg (32-45)
[2021-03-11 19:17] LABS: CREATININE 2.7 mg/dL (0.5-1.5); POTASSIUM 5.9 mmol/L (3.5-5.1)
[2021-03-11] MEDS ORDERED: NA ZIRCON CYCLOSIL(LOKELMA 10GM) PO ONE (20:00)
[2021-03-11] MEDS ORDERED: DEXTROSE 50%-WATER 50 ML DISP.SYRIN IV ONE (20:00)
[2021-03-11] MEDS ORDERED: INSULIN HUMULIN R 100 UNIT/ML 3ML IV ONE (20:00)
[2021-03-11] MEDS ORDERED: SODIUM BICARB 50MEQ 50ML VIAL IV SCH (20:00)
[2021-03-11] MEDS ORDERED: COMPOUND IV REFRIGERATED 1 EACH IVSOLN MISC PRN (20:30)
[2021-03-11] MEDS: ATORVASTATIN 20 MG TABLET PO SCH (20:41)
[2021-03-11] MEDS: INSULIN GLARGINE 100 UNITS/ML 10 ML VIAL SQ SCH (21:00)
[2021-03-11] MEDS ORDERED: EPOETIN ALFA-EPBX (NON-ESRD) 10,000 UNIT/ML VIAL SQ SCH (21:00)
[2021-03-11] MEDS: MICAFUNGIN 100MG+NS 100ML 100 ML IV SCH (21:02)
[2021-03-12] VITALS (67 sets, daily range): BP systolic 80–200; BP diastolic 47–105
[2021-03-12 00:28] LABS: CREATININE 3.1 mg/dL (0.5-1.5)
[2021-03-12] MEDS: INSULIN R NPO SSI SQ SCH ×5 (00:42→23:29)
[2021-03-12] MEDS: VASOPRESSIN 40 UNITS in 0.9%NACL 50ML 40 ML IV SCH ×3 (00:57→17:52)
[2021-03-12] MEDS: PROPOFOL 1000 MG/100 ML 100 ML IV SCH ×4 (05:06→17:53)
[2021-03-12] MEDS: MEROPENEM 1 GM VIAL IVP SCH ×2 (05:06→17:49)
[2021-03-12 06:34] LABS: BASOPHILS % (AUTO) 0.2 % (0.0-5.0); HEMATOCRIT 21.9 % (36-48); MEAN CORPUSCULAR HEMOGLOBIN 31.4 pg (27.0-33.0); MEAN CORPUSCULAR HGB CONC 33.8 g/dL (32.0-36.0); MEAN CORPUSCULAR VOLUME 92.8 fL (79-99); MONOCYTES % (AUTO) 2.3 % (3.0-13.0); NEUTROPHILS % (AUTO) 95.7 % (40.0-77.0); NUCLEATED RED BLOOD CELLS 0.7 % (0.0-0.19); PLATELET COUNT (AUTO) 58 K/uL (130-400); RED BLOOD CELL COUNT(AUTO) 2.36 MIL/uL (4.00-5.50); RED CELL DISTRIBUTION WIDTH 14.8 % (11.0-15.5)
[2021-03-12 06:47] LABS: ALBUMIN 1.8 g/dL (3.5-5.0); BILIRUBIN,TOTAL 0.8 mg/dL (0.2-1.0); CREATININE 3.1 mg/dL (0.5-1.5); CRP QUANTITATIVE 82.4 mg/L (0.00-9.0); POTASSIUM 4.9 mmol/L (3.5-5.1); TOTAL PROTEIN, SERUM 4.6 g/dL (6.0-8.3); WHITE BLOOD COUNT (AUTO) 32.4 K/uL (4.8-10.8)
[2021-03-12 07:20] LABS: ABG HCO3 20.4 mmol/L (21.0-28.0); ABG OXYGEN SATURATION 91.7 % (95.0-99.0); ABG PCO2 34 mmHg (32-45)
[2021-03-12 07:26] LABS: LYMPHOCYTES % (MANUAL) 2 % (22-44); MAN.DIFF COMMENT-IMPRESSION MANUAL DIFFERENTIAL; MONOCYTES % (MANUAL) 1 % (2-9); SEGMENTED NEUTROPHILS % 97 % (40-70)
[2021-03-12 07:27] LABS: PLATELET MORPHOLOGY COMMENT DECREASED
[2021-03-12] MEDS: LINEZOLID 600 MG/ISO-OSM 300 ML IV SCH (08:00)
[2021-03-12] MEDS: SOLU-MEDROL 40MG VIAL IVP SCH ×2 (08:59→20:48)
[2021-03-12] MEDS: PANTOPRAZOLE 40 MG/VIAL IVP SCH (08:59)
[2021-03-12] MEDS: ALLOPURINOL 100 MG TABLET PO SCH (09:00)
[2021-03-12] MEDS: METOPROLOL SUCCINATE 50 MG TAB.SR.24H PO SCH (09:00)
[2021-03-12] MEDS ORDERED: VANCOMYCIN PROTOCOL PER PHARMACY IV SCH ×2 (16:30)
[2021-03-12 16:56] LABS: ABG BASE EXCESS -4.4 mmol/L (-2.0-3.0); ABG HCO3 21.6 mmol/L (21.0-28.0); ABG OXYGEN SATURATION 94.1 % (95.0-99.0); ABG PCO2 44 mmHg (32-45)
[2021-03-12] MEDS: FENTANYL 2500MCG+NS 250ML 250 ML IVPB SCH (17:51)
[2021-03-12] MEDS ORDERED: VANCOMYCIN 1.5GM/NS 250ML IV ONE ×2 (18:00)
[2021-03-12] MEDS: ATORVASTATIN 20 MG TABLET PO SCH (20:48)
[2021-03-12] MEDS: MICAFUNGIN 100MG+NS 100ML 100 ML IV SCH (20:48)
[2021-03-12] MEDS: INSULIN GLARGINE 100 UNITS/ML 10 ML VIAL SQ SCH (21:00)
[2021-03-13] VITALS (56 sets, daily range): BP systolic 67–143; BP diastolic 21–75
[2021-03-13] MEDS: PROPOFOL 1000 MG/100 ML 100 ML IV SCH ×2 (03:40→18:15)
[2021-03-13] MEDS: MEROPENEM 1 GM VIAL IVP SCH ×2 (04:32→18:16)
[2021-03-13] MEDS: INSULIN R NPO SSI SQ SCH ×3 (06:00→18:49)
[2021-03-13] MEDS: VASOPRESSIN 40 UNITS in 0.9%NACL 50ML 40 ML IV SCH (06:46)
[2021-03-13 06:51] LABS: BASOPHILS % (AUTO) 0.2 % (0.0-5.0); MEAN CORPUSCULAR HEMOGLOBIN 30.8 pg (27.0-33.0); MEAN CORPUSCULAR HGB CONC 33.5 g/dL (32.0-36.0); MEAN CORPUSCULAR VOLUME 92.1 fL (79-99); MONOCYTES % (AUTO) 1.6 % (3.0-13.0); NEUTROPHILS % (AUTO) 96.3 % (40.0-77.0); NUCLEATED RED BLOOD CELLS 0.3 % (0.0-0.19); PLATELET COUNT (AUTO) 55 K/uL (130-400); RED BLOOD CELL COUNT(AUTO) 2.14 MIL/uL (4.00-5.50); RED CELL DISTRIBUTION WIDTH 14.5 % (11.0-15.5)
[2021-03-13 07:03] LABS: HEMATOCRIT 19.7 % (36-48)
[2021-03-13 07:04] LABS: ALBUMIN 1.7 g/dL (3.5-5.0); BILIRUBIN,TOTAL 0.9 mg/dL (0.2-1.0); CRP QUANTITATIVE 76.9 mg/L (0.00-9.0); POTASSIUM 5.1 mmol/L (3.5-5.1); TOTAL PROTEIN, SERUM 4.7 g/dL (6.0-8.3)
[2021-03-13 07:04] LABS: ABG BASE EXCESS -2.4 mmol/L (-2.0-3.0); ABG HCO3 13.3 mmol/L (21.0-28.0); ABG PCO2 < 14 mmHg (32-45)
[2021-03-13 07:30] LABS: MONOCYTES % (MANUAL) 1 % (2-9); SEGMENTED NEUTROPHILS % 99 % (40-70)
[2021-03-13 07:31] LABS: MAN.DIFF COMMENT-IMPRESSION MANUAL DIFFERENTIAL; PLATELET MORPHOLOGY COMMENT DECREASED
[2021-03-13] MEDS ORDERED: FONDAPARINUX SODIUM 2.5 MG/0.5 ML SQ SCH (09:00)
[2021-03-13] MEDS: PANTOPRAZOLE 40 MG/VIAL IVP SCH ×2 (09:53→20:56)
[2021-03-13] MEDS: ALLOPURINOL 100 MG TABLET PO SCH (09:53)
[2021-03-13] MEDS: METOPROLOL SUCCINATE 50 MG TAB.SR.24H PO SCH (09:53)
[2021-03-13] MEDS: SOLU-MEDROL 40MG VIAL IVP SCH (09:53)
[2021-03-13 14:27] LABS: ABG BASE EXCESS -4.8 mmol/L (-2.0-3.0); ABG HCO3 22.3 mmol/L (21.0-28.0); ABG OXYGEN SATURATION 93.1 % (95.0-99.0); ABG PCO2 52 mmHg (32-45)
[2021-03-13 15:27] LABS: HEMATOCRIT 23.9 % (36-48)
[2021-03-13 15:40] LABS: INR 0.99 (0.85-1.15); PROTHROMBIN TIME 10.8 SEC (9.6-11.6)
[2021-03-13 15:41] LABS: PARTIAL THROMBOPLASTIN TIME 32.5 SEC (26.3-35.5)
[2021-03-13] MEDS: FENTANYL 2500MCG+NS 250ML 250 ML IVPB SCH (18:14)
[2021-03-13] MEDS: MIDODRINE HCL 5 MG TABLET PO SCH (20:56)
[2021-03-13] MEDS: ATORVASTATIN 20 MG TABLET PO SCH (20:56)
[2021-03-13] MEDS: INSULIN GLARGINE 100 UNITS/ML 10 ML VIAL SQ SCH (21:15)
[2021-03-13] MEDS: MICAFUNGIN 100MG+NS 100ML 100 ML IV SCH (21:16)
[2021-03-14] VITALS (23 sets, daily range): BP systolic 92–154; BP diastolic 57–80
[2021-03-14] MEDS: PROPOFOL 1000 MG/100 ML 100 ML IV SCH ×2 (02:23→19:01)
[2021-03-14] MEDS: MEROPENEM 1 GM VIAL IVP SCH ×2 (05:21→16:54)
[2021-03-14 05:33] LABS: ABG BASE EXCESS -4.9 mmol/L (-2.0-3.0); ABG HCO3 22.1 mmol/L (21.0-28.0); ABG OXYGEN SATURATION 94.1 % (95.0-99.0); ABG PCO2 50 mmHg (32-45)
[2021-03-14] MEDS: INSULIN R NPO SSI SQ SCH ×4 (06:00→18:29)
[2021-03-14 06:13] LABS: BASOPHILS % (AUTO) 0.2 % (0.0-5.0); HEMATOCRIT 23.8 % (36-48); LYMPHOCYTES % (AUTO) 0.8 % (21.0-51.0); MEAN CORPUSCULAR HEMOGLOBIN 31.7 pg (27.0-33.0); MEAN CORPUSCULAR HGB CONC 35.3 g/dL (32.0-36.0); MEAN CORPUSCULAR VOLUME 89.8 fL (79-99); MONOCYTES % (AUTO) 2.4 % (3.0-13.0); NEUTROPHILS % (AUTO) 95.7 % (40.0-77.0); NUCLEATED RED BLOOD CELLS 0.2 % (0.0-0.19); PLATELET COUNT (AUTO) 43 K/uL (130-400); RED BLOOD CELL COUNT(AUTO) 2.65 MIL/uL (4.00-5.50); RED CELL DISTRIBUTION WIDTH 16.1 % (11.0-15.5)
[2021-03-14 06:24] LABS: ALBUMIN 1.9 g/dL (3.5-5.0); BILIRUBIN,TOTAL 0.8 mg/dL (0.2-1.0); CRP QUANTITATIVE 63.1 mg/L (0.00-9.0); POTASSIUM 5.2 mmol/L (3.5-5.1)
[2021-03-14] MEDS ORDERED: FUROSEMIDE 40MG VIAL IV SCH (09:00)
[2021-03-14] MEDS: METOPROLOL SUCCINATE 50 MG TAB.SR.24H PO SCH (09:52)
[2021-03-14] MEDS: ALLOPURINOL 100 MG TABLET PO SCH (09:52)
[2021-03-14] MEDS: DEXAMETHASONE SOD PHOSPHATE 4 MG/ML 1ML VIAL IVP SCH (09:52)
[2021-03-14] MEDS: PANTOPRAZOLE 40 MG/VIAL IVP SCH ×2 (09:53→20:45)
[2021-03-14] MEDS: MIDODRINE HCL 5 MG TABLET PO SCH ×3 (09:55→20:45)
[2021-03-14 12:33] LABS: ABG BASE EXCESS -4.8 mmol/L (-2.0-3.0); ABG OXYGEN SATURATION 90.8 % (95.0-99.0); ABG PCO2 42 mmHg (32-45)
[2021-03-14] MEDS ORDERED: FUROSEMIDE 40MG VIAL IV ONE (16:00)
[2021-03-14] MEDS: FENTANYL 2500MCG+NS 250ML 250 ML IVPB SCH (17:45)
[2021-03-14] MEDS ORDERED: 0.9% NACL 250ML 250 ML IV SCH (18:00)
[2021-03-14] MEDS ORDERED: VANCOMYCIN 750MG VIAL IVPB SCH (18:00)
[2021-03-14] MEDS: ATORVASTATIN 20 MG TABLET PO SCH (20:45)
[2021-03-14] MEDS: MICAFUNGIN 100MG+NS 100ML 100 ML IV SCH (21:00)
[2021-03-14] MEDS: INSULIN GLARGINE 100 UNITS/ML 10 ML VIAL SQ SCH (21:01)
[2021-03-15] VITALS (35 sets, daily range): BP systolic 61–188; BP diastolic 39–104
[2021-03-15 04:56] LABS: ABG BASE EXCESS -4.4 mmol/L (-2.0-3.0); ABG HCO3 22.9 mmol/L (21.0-28.0); ABG OXYGEN SATURATION 91.9 % (95.0-99.0); ABG PCO2 54 mmHg (32-45)
[2021-03-15] MEDS: MEROPENEM 1 GM VIAL IVP SCH ×2 (05:06→16:26)
[2021-03-15] MEDS: INSULIN R NPO SSI SQ SCH ×4 (06:00→17:44)
[2021-03-15 06:15] LABS: BASOPHILS % (AUTO) 0.1 % (0.0-5.0); EOSINOPHILS % (AUTO) 0.3 % (0.0-8.0); HEMATOCRIT 22.8 % (36-48); LYMPHOCYTES % (AUTO) 1.1 % (21.0-51.0); MEAN CORPUSCULAR HEMOGLOBIN 31.2 pg (27.0-33.0); MEAN CORPUSCULAR HGB CONC 34.2 g/dL (32.0-36.0); MEAN CORPUSCULAR VOLUME 91.2 fL (79-99); NEUTROPHILS % (AUTO) 94.1 % (40.0-77.0); NUCLEATED RED BLOOD CELLS 0.1 % (0.0-0.19); PLATELET COUNT (AUTO) 36 K/uL (130-400); RED CELL DISTRIBUTION WIDTH 15.9 % (11.0-15.5); WHITE BLOOD COUNT (AUTO) 27.1 K/uL (4.8-10.8)
[2021-03-15 06:22] LABS: CRP QUANTITATIVE 51.7 mg/L (0.00-9.0); POTASSIUM 5.1 mmol/L (3.5-5.1)
[2021-03-15] MEDS: PROPOFOL 1000 MG/100 ML 100 ML IV SCH ×3 (06:34→23:54)
[2021-03-15] MEDS: PANTOPRAZOLE 40 MG/VIAL IVP SCH ×2 (09:55→20:32)
[2021-03-15] MEDS: MIDODRINE HCL 5 MG TABLET PO SCH ×3 (09:55→20:32)
[2021-03-15] MEDS: ALLOPURINOL 100 MG TABLET PO SCH (09:55)
[2021-03-15] MEDS: DEXAMETHASONE SOD PHOSPHATE 4 MG/ML 1ML VIAL IVP SCH (09:55)
[2021-03-15] MEDS: METOPROLOL SUCCINATE 50 MG TAB.SR.24H PO SCH (09:55)
[2021-03-15] MEDS ORDERED: METOPROLOL TARTRATE 1 MG/ML 5ML VIAL IV PRN (10:00)
[2021-03-15 10:16] LABS: MAGNESIUM 2.1 mg/dL (1.80-2.40); THYROID STIMULATING HORMONE 0.1 uIU/mL (0.36-3.74)
[2021-03-15 11:15] LABS: ABG BASE EXCESS -1.4 mmol/L (-2.0-3.0); ABG HCO3 23.7 mmol/L (21.0-28.0); ABG OXYGEN SATURATION 93.1 % (95.0-99.0); ABG PCO2 41 mmHg (32-45)
[2021-03-15] MEDS: NOREPINEPHRINE BITARTRATE 32 MG in 0.9% NACL 250ML 250 ML IV SCH (20:32)
[2021-03-15] MEDS: VASOPRESSIN 40 UNITS in 0.9%NACL 50ML 40 ML IV SCH (20:33)
[2021-03-15] MEDS: MICAFUNGIN 100MG+NS 100ML 100 ML IV SCH (20:33)
[2021-03-15] MEDS: ATORVASTATIN 20 MG TABLET PO SCH (20:34)
[2021-03-15] MEDS: INSULIN GLARGINE 100 UNITS/ML 10 ML VIAL SQ SCH (21:00)
[2021-03-16] VITALS (95 sets, daily range): BP systolic 65–236; BP diastolic 34–129
[2021-03-16] MEDS: INSULIN R NPO SSI SQ SCH ×4 (00:25→17:34)
[2021-03-16] MEDS: IPRATROPIUM 0.5 MG/2.5 ML INH IH SCH ×3 (06:00→18:47)
[2021-03-16] MEDS: MEROPENEM 1 GM VIAL IVP SCH ×2 (06:21→17:37)
[2021-03-16 06:54] LABS: BASOPHILS % (AUTO) 0.2 % (0.0-5.0); EOSINOPHILS % (AUTO) 0.2 % (0.0-8.0); LYMPHOCYTES % (AUTO) 1.6 % (21.0-51.0); MEAN CORPUSCULAR HEMOGLOBIN 31.2 pg (27.0-33.0); MEAN CORPUSCULAR HGB CONC 34.7 g/dL (32.0-36.0); MONOCYTES % (AUTO) 3.4 % (3.0-13.0); NEUTROPHILS % (AUTO) 93.7 % (40.0-77.0); PLATELET COUNT (AUTO) 29 K/uL (130-400); RED BLOOD CELL COUNT(AUTO) 2.21 MIL/uL (4.00-5.50); RED CELL DISTRIBUTION WIDTH 15.2 % (11.0-15.5)
[2021-03-16 07:08] LABS: ALBUMIN 1.9 g/dL (3.5-5.0); BILIRUBIN,TOTAL 0.8 mg/dL (0.2-1.0); CREATININE 2.5 mg/dL (0.5-1.5); MAGNESIUM 2.2 mg/dL (1.80-2.40); POTASSIUM 4.5 mmol/L (3.5-5.1); TOTAL PROTEIN, SERUM 4.8 g/dL (6.0-8.3)
[2021-03-16 07:12] LABS: HEMATOCRIT 19.9 % (36-48)
[2021-03-16 07:26] LABS: B-TYPE NATRIURETIC PEPTIDE 389 pg/mL (0-100)
[2021-03-16 08:33] LABS: HEMATOCRIT 19.6 % (36-48)
[2021-03-16] MEDS: METOPROLOL SUCCINATE 50 MG TAB.SR.24H PO SCH (09:00)
[2021-03-16] MEDS: ALLOPURINOL 100 MG TABLET PO SCH (09:59)
[2021-03-16] MEDS: MIDODRINE HCL 5 MG TABLET PO SCH ×3 (09:59→19:40)
[2021-03-16] MEDS: PANTOPRAZOLE 40 MG/VIAL IVP SCH ×2 (09:59→19:40)
[2021-03-16] MEDS: DEXAMETHASONE SOD PHOSPHATE 4 MG/ML 1ML VIAL IVP SCH (10:00)
[2021-03-16] MEDS: PROPOFOL 1000 MG/100 ML 100 ML IV SCH ×2 (13:53→19:11)
[2021-03-16 15:05] LABS: ABG HCO3 25.7 mmol/L (21.0-28.0); ABG OXYGEN SATURATION 41.4 % (95.0-99.0); ABG PCO2 49 mmHg (32-45)
[2021-03-16 16:56] LABS: HEMATOCRIT 24.7 % (36-48)
[2021-03-16] MEDS: MICAFUNGIN 100MG+NS 100ML 100 ML IV SCH (19:40)
[2021-03-16] MEDS: ATORVASTATIN 20 MG TABLET PO SCH (19:40)
[2021-03-16] MEDS: VASOPRESSIN 40 UNITS in 0.9%NACL 50ML 40 ML IV SCH (19:44)
[2021-03-16] MEDS: INSULIN GLARGINE 100 UNITS/ML 10 ML VIAL SQ SCH (19:44)
[2021-03-16] MEDS ORDERED: FENTANYL 2500MCG+NS 250ML 250 ML IV ONE (22:19)
[2021-03-16] MEDS: MIDAZOLAM 100MG-0.9% NS 100ML 100 ML IV PRN (22:32)
[2021-03-17] VITALS (87 sets, daily range): BP systolic 66–221; BP diastolic 40–136
[2021-03-17] MEDS: IPRATROPIUM 0.5 MG/2.5 ML INH IH SCH ×4 (00:27→18:54)
[2021-03-17] MEDS: PHENYLEPHRINE HCL 100 MG in 0.9% NACL 250ML 240 ML IV PRN (01:36)
[2021-03-17 01:40] LABS: HEMATOCRIT 24.8 % (36-48)
[2021-03-17] MEDS: INSULIN R NPO SSI SQ SCH ×4 (05:41→18:04)
[2021-03-17] MEDS: MEROPENEM 1 GM VIAL IVP SCH ×2 (05:48→17:58)
[2021-03-17 06:45] LABS: BASOPHILS % (AUTO) 0.1 % (0.0-5.0); HEMATOCRIT 26.6 % (36-48); LYMPHOCYTES % (AUTO) 1.8 % (21.0-51.0); MEAN CORPUSCULAR HEMOGLOBIN 30.7 pg (27.0-33.0); MEAN CORPUSCULAR VOLUME 87.8 fL (79-99); NEUTROPHILS % (AUTO) 95.2 % (40.0-77.0); NUCLEATED RED BLOOD CELLS 0.1 % (0.0-0.19); PLATELET COUNT (AUTO) 70 K/uL (130-400); RED BLOOD CELL COUNT(AUTO) 3.03 MIL/uL (4.00-5.50); RED CELL DISTRIBUTION WIDTH 14.2 % (11.0-15.5)
[2021-03-17 07:04] LABS: ABG BASE EXCESS 0.4 mmol/L (-2.0-3.0); ABG HCO3 26.1 mmol/L (21.0-28.0); ABG OXYGEN SATURATION 94.1 % (95.0-99.0); ABG PCO2 47 mmHg (32-45)
[2021-03-17 07:12] LABS: ALBUMIN 2.2 g/dL (3.5-5.0); BILIRUBIN,TOTAL 1.1 mg/dL (0.2-1.0); CREATININE 1.9 mg/dL (0.5-1.5); CRP QUANTITATIVE 60.6 mg/L (0.00-9.0); POTASSIUM 3.8 mmol/L (3.5-5.1); TOTAL PROTEIN, SERUM 5.4 g/dL (6.0-8.3)
[2021-03-17] MEDS: PANTOPRAZOLE 40 MG/VIAL IVP SCH ×2 (09:31→19:45)
[2021-03-17] MEDS: MIDODRINE HCL 5 MG TABLET PO SCH ×3 (10:02→19:32)
[2021-03-17] MEDS: ALLOPURINOL 100 MG TABLET PO SCH (10:02)
[2021-03-17] MEDS: DEXAMETHASONE SOD PHOSPHATE 4 MG/ML 1ML VIAL IVP SCH (10:02)
[2021-03-17] MEDS ORDERED: FUROSEMIDE 20MG VIAL IV SCH (10:30)
[2021-03-17] MEDS: MIDAZOLAM 100MG-0.9% NS 100ML 100 ML IV PRN ×2 (12:53→21:49)
[2021-03-17 17:10] LABS: HEMATOCRIT 27.8 % (36-48)
[2021-03-17 17:29] LABS: CREATININE 1.8 mg/dL (0.5-1.5)
[2021-03-17] MEDS ORDERED: FENTANYL 2500MCG+NS 250ML 250 ML IV ONE (19:23)
[2021-03-17] MEDS ORDERED: FENTANYL 2500MCG+NS 250ML 250 ML IV PRN (19:30)
[2021-03-17] MEDS: MICAFUNGIN 100MG+NS 100ML 100 ML IV SCH (19:45)
[2021-03-17] MEDS: ATORVASTATIN 20 MG TABLET PO SCH (19:46)
[2021-03-17] MEDS: INSULIN GLARGINE 100 UNITS/ML 10 ML VIAL SQ SCH (19:47)
[2021-03-18] VITALS (27 sets, daily range): BP systolic 77–157; BP diastolic 42–85
[2021-03-18] MEDS: IPRATROPIUM 0.5 MG/2.5 ML INH IH SCH ×3 (00:06→11:37)
[2021-03-18] MEDS: INSULIN R NPO SSI SQ SCH ×2 (00:34→05:27)
[2021-03-18 01:03] LABS: HEMATOCRIT 25.5 % (36-48)
[2021-03-18] MEDS ORDERED: MIDODRINE HCL 5 MG TABLET PO SCH (02:00)
[2021-03-18] MEDS: MEROPENEM 1 GM VIAL IVP SCH (04:00)
[2021-03-18 04:36] LABS: BASOPHILS % (AUTO) 0.3 % (0.0-5.0); EOSINOPHILS % (AUTO) 1.4 % (0.0-8.0); HEMATOCRIT 25.9 % (36-48); LYMPHOCYTES % (AUTO) 1.1 % (21.0-51.0); MEAN CORPUSCULAR HGB CONC 33.2 g/dL (32.0-36.0); MEAN CORPUSCULAR VOLUME 90.2 fL (79-99); MONOCYTES % (AUTO) 2.4 % (3.0-13.0); NEUTROPHILS % (AUTO) 93.3 % (40.0-77.0); NUCLEATED RED BLOOD CELLS 0.2 % (0.0-0.19); PLATELET COUNT (AUTO) 49 K/uL (130-400); RED BLOOD CELL COUNT(AUTO) 2.87 MIL/uL (4.00-5.50); RED CELL DISTRIBUTION WIDTH 14.3 % (11.0-15.5); WHITE BLOOD COUNT (AUTO) 18.3 K/uL (4.8-10.8)
[2021-03-18] MEDS: PHENYLEPHRINE HCL 100 MG in 0.9% NACL 250ML 240 ML IV PRN (04:53)
[2021-03-18 05:01] LABS: ALBUMIN 2.1 g/dL (3.5-5.0); BILIRUBIN,TOTAL 0.8 mg/dL (0.2-1.0); CREATININE 1.5 mg/dL (0.5-1.5); CRP QUANTITATIVE 139.8 mg/L (0.00-9.0); MAGNESIUM 1.9 mg/dL (1.80-2.40); POTASSIUM 3.3 mmol/L (3.5-5.1); TOTAL PROTEIN, SERUM 5.3 g/dL (6.0-8.3)
[2021-03-18] MEDS ORDERED: POTASSIUM CHLORIDE 20MEQ/100ML 100 ML IV SCH (06:41)
[2021-03-18 07:31] LABS: ABG BASE EXCESS 3.3 mmol/L (-2.0-3.0); ABG HCO3 30.9 mmol/L (21.0-28.0); ABG OXYGEN SATURATION 87.7 % (95.0-99.0); ABG PCO2 66 mmHg (32-45)
[2021-03-18] MEDS ORDERED: PHARMACY COMMUNICATION MISC SCH (09:00)
[2021-03-18] MEDS: PANTOPRAZOLE 40 MG/VIAL IVP SCH (09:36)
[2021-03-18] MEDS: DEXAMETHASONE SOD PHOSPHATE 4 MG/ML 1ML VIAL IVP SCH (09:36)
[2021-03-18] MEDS: VASOPRESSIN 40 UNITS in 0.9%NACL 50ML 40 ML IV SCH (09:39)
[2021-03-18] MEDS: MIDAZOLAM 100MG-0.9% NS 100ML 100 ML IV PRN (09:40)
[2021-03-18] MEDS ORDERED: SCOPOLAMINE HYDROBROMIDE 1 EACH ADH..PATCH TD SCH (13:30)
[2021-03-18] MEDS ORDERED: HALOPERIDOL INJ 5 MG/ML VIAL IV PRN (13:30)
[2021-03-18] MEDS ORDERED: ONDANSETRON 4MG INJ IVP PRN (13:30)
[2021-03-18] MEDS ORDERED: ACETAMINOPHEN 325 MG TAB PO PRN (13:30)
[2021-03-18] MEDS ORDERED: ACETAMINOPHEN 650 MG SUPPOSITORY RC PRN (13:30)
[2021-03-18] MEDS ORDERED: LORAZEPAM 2 MG/ML 1 ML VIAL IVP PRN (13:30)
[2021-03-18] MEDS ORDERED: ARTIFICAL TEARS SOL 15 ML OU PRN (13:30)
[2021-03-18] MEDS ORDERED: ATROPINE SULFATE 5 ML DROPS PO PRN ×2 (13:30)
[2021-03-18] MEDS: HYDROMORPHONE 1 MG INJ IVP PRN ×2 (13:37→14:19)
== END 2021-03-18 14:26 | DRG 870 ==
LOC: EDH 13:10 → EDHIP 16:30 → 2AH 17:29 → 2BH 03-16 04:56
PROVIDERS: ADMIT Internal Medicine; ATTEND Internal Medicine
PROC: 4A023N7 Measurement of Cardiac Sampling and Pressure, Left Heart, Percutaneous Approach (ICD-10-PCS; 2021-02-27)
PROC: B2111ZZ Fluoroscopy of Multiple Coronary Arteries using Low Osmolar Contrast (ICD-10-PCS; 2021-02-27)
PROC: B2151ZZ Fluoroscopy of Left Heart using Low Osmolar Contrast (ICD-10-PCS; 2021-02-27)
PROC: B41F1ZZ Fluoroscopy of Right Lower Extremity Arteries using Low Osmolar Contrast (ICD-10-PCS; 2021-02-27)
PROC: XW0DXM6 Introduction of Baricitinib into Mouth and Pharynx, External Approach, New Technology Group 6 (ICD-10-PCS; 2021-02-28)
PROC: XW033E5 Introduction of Remdesivir Anti-infective into Peripheral Vein, Percutaneous Approach, New Technology Group 5 (ICD-10-PCS; 2021-03-01)
PROC: 5A0935A Assistance with Respiratory Ventilation, Less than 24 Consecutive Hours, High Flow/Velocity Cannula (ICD-10-PCS; 2021-03-05)
PROC: 5A0935A Assistance with Respiratory Ventilation, Less than 24 Consecutive Hours, High Flow/Velocity Cannula (ICD-10-PCS; 2021-03-09)
PROC: 30233N1 Transfusion of Nonautologous Red Blood Cells into Peripheral Vein, Percutaneous Approach (ICD-10-PCS; 2021-03-10)
PROC: 5A12012 Performance of Cardiac Output, Single, Manual (ICD-10-PCS; 2021-03-10)
PROC: 02HV33Z Insertion of Infusion Device into Superior Vena Cava, Percutaneous Approach (ICD-10-PCS; 2021-03-10)
PROC: 0BH17EZ Insertion of Endotracheal Airway into Trachea, Via Natural or Artificial Opening (ICD-10-PCS; 2021-03-10)
PROC: 5A0935A Assistance with Respiratory Ventilation, Less than 24 Consecutive Hours, High Flow/Velocity Cannula (ICD-10-PCS; 2021-03-10)
PROC: 5A1955Z Respiratory Ventilation, Greater than 96 Consecutive Hours (ICD-10-PCS; 2021-03-12)
PROC: 30233R1 Transfusion of Nonautologous Platelets into Peripheral Vein, Percutaneous Approach (ICD-10-PCS; principal; 2021-03-16)
DX: A41.89 Other specified sepsis (principal); U07.1 COVID-19; I21.A1 Myocardial infarction type 2; J12.82 Pneumonia due to coronavirus disease 2019; J80 Acute respiratory distress syndrome; R65.21 Severe sepsis with septic shock; G93.41 Metabolic encephalopathy; J15.212 Pneumonia due to Methicillin resistant Staphylococcus aureus; J15.1 Pneumonia due to Pseudomonas; N04.9 Nephrotic syndrome with unspecified morphologic changes; D68.59 Other primary thrombophilia; E87.0 Hyperosmolality and hypernatremia; I42.9 Cardiomyopathy, unspecified; I47.1 Supraventricular tachycardia; J81.1 Chronic pulmonary edema; J93.9 Pneumothorax, unspecified; N17.9 Acute kidney failure, unspecified; T79.7XXA Traumatic subcutaneous emphysema, initial encounter; E87.4 Mixed disorder of acid-base balance; Z66 Do not resuscitate; I13.10 Hypertensive heart and chronic kidney disease without heart failure, with stage 1 through stage 4 chronic kidney disease, or unspecified chronic kidney disease; E11.22 Type 2 diabetes mellitus with diabetic chronic kidney disease; D63.1 Anemia in chronic kidney disease; E11.319 Type 2 diabetes mellitus with unspecified diabetic retinopathy without macular edema; E11.40 Type 2 diabetes mellitus with diabetic neuropathy, unspecified; B96.5 Pseudomonas (aeruginosa) (mallei) (pseudomallei) as the cause of diseases classified elsewhere; E87.5 Hyperkalemia; D69.6 Thrombocytopenia, unspecified; D53.9 Nutritional anemia, unspecified; E66.9 Obesity, unspecified; E78.5 Hyperlipidemia, unspecified; E86.1 Hypovolemia; E87.70 Fluid overload, unspecified; E88.09 Other disorders of plasma-protein metabolism, not elsewhere classified; F41.9 Anxiety disorder, unspecified; R53.81 Other malaise; E87.8 Other disorders of electrolyte and fluid balance, not elsewhere classified; I25.10 Atherosclerotic heart disease of native coronary artery without angina pectoris; J45.909 Unspecified asthma, uncomplicated; N18.32 Chronic kidney disease, stage 3b; Z68.36 Body mass index [BMI] 36.0-36.9, adult; Z74.01 Bed confinement status; Z79.01 Long term (current) use of anticoagulants; Z79.4 Long term (current) use of insulin; Z79.52 Long term (current) use of systemic steroids; Z79.82 Long term (current) use of aspirin; Z79.899 Other long term (current) drug therapy; Z86.718 Personal history of other venous thrombosis and embolism; Z87.440 Personal history of urinary (tract) infections; Z87.441 Personal history of nephrotic syndrome; Z91.14 Patient's other noncompliance with medication regimen; Z91.19 Patient's noncompliance with other medical treatment and regimen; Z86.73 Personal history of transient ischemic attack (TIA), and cerebral infarction without residual deficits; Z88.8 Allergy status to other drugs, medicaments and biological substances; Y92.89 Other specified places as the place of occurrence of the external cause
CPT/HCPCS: 31500; 36415; 36430; 36600; 71045; 74018; 76700; 80048; 80053; 80202; 81001; 82140; 82435; 82550; 82570; 82803; 82947; 82948; 83010; 83036; 83540; 83550; 83605; 83615; 83735; 83874; 83880; 84132; 84145; 84156; 84295; 84443; 84484; 85014; 85018; 85025; 85378; 85384; 85610; 85730; 86022; 86140; 86606; 86612; 86635; 86698; 86850; 86900; 86901; 86923; 87040; 87071; 87077; 87088; 87186; 87205; 87486; 87581; 87633; 87635; 87798; 87804; 92950; 93005; 93458; 93931; 93970; 93971; 94002; 94003; 94640; 94664; 97039; C1760; C1894; C9113; C9803; G0378; J0360; J0583; J0610; J0692; J1100; J1170; J1644; J1650; J1815; J1940; J2020; J2060; J2185; J2248; J2250; J2270; J2370; J2543; J2704; J2920; J3010; J3370; J3480; J3490; J7050; J7070; J7120; P9016; P9034; Q9967